=== PATIENT | female | born 1995 | race Caucasian/White ===

== ENCOUNTER 2019-04-11 12:41 | Emergency (ER) | payer MEDICAID, SELFPAY ==
[2019-04-11 12:44] VITALS: BP 127/66; PULSE 63; RESP 18; TEMP 36.3; O2SAT 100
--- NOTE | 2019-04-11 13:13 | ED.GENADUL_ITS ---
Discharge Plan Disposition Patient Disposition: HOME Discharge Details Chief Complaint: Allergic Clinical Impression: Allergic reaction to food Primary Care Provider: Amy Wilcox ED Provider: Stone Cason Home Meds and New Rx's Prescriptions: New prednisone 20 mg tablet 40 mg PO DAILY Qty: 8 RF: 0 No Action cetirizine [Zyrtec] 10 mg Tablet 10 mg PO DAILY RF: 0 Discharge Instructions Instructions: Food Allergy (ED), Anaphylaxis (ED) Additional Instructions: Please use Benadryl 50 mg every 8 hours for the next 2 days. Take prednisone as prescribed. Use your EpiPen as prescribed for anaphylaxis. Avoid foods that contain pineapple or any other known allergens. Please contact your primary care physician to arrange follow-up. Return to the ER for any worsening or new concerning symptoms. Discharge Data Discharge Date/Time-TO BE ENTERED AT DEPARTURE: 04/11/19 13:34 Medical Decision Making 23-year-old female with known pineapple allergy here after consuming Citizen Of [place] food that had some pineapple in it. She initially had some throat itching and s welling. This occurred around 1210, 1 hour ago. She took Benadryl 50 mg and symptoms have significantly improved and now resolved. She has no signs or symptoms of anaphylaxis now. Lungs are clear to auscultation. She saturating well no respiratory distress. No oropharyngeal edema. No nausea. No rash. Plan will be to start prednisone and continue prednisone burst with Benadryl every 8 hours. Patient does have access to her EpiPen and I encouraged her to use this for anaphylaxis. She understands she should avoid any foods containing pineapple. She was encouraged to follow-up with her primary care physician and to return immediately should she have any worsening or new concerning symptoms. HPI General Mode of arrival: ambulatory . Date/Time Provider Initiated Documentation: 04/11/19 12:55 . Limitations to Documentation: no limitations . Information obtained by: patient . HPI Narrative: 23-year-old female with known pineapple allergy here after consuming Citizen [place] food that had some pineapple in it. She initially had some throat itching and sensation of throat swelling. This occurred around 1210. She took benadryl and symptoms improved and have now resolved. No persistent swelling. No nausea/vomiting. No dyspnea. Related Data Home Medications Medication Instructions Recorded Confirmed cetirizine [Zyrtec] 10 mg PO DAILY 04/11/19 04/11/19 prednisone 40 mg PO DAILY #8 tab 04/11/19 Previous Rx's Medication Instructions Recorded prednisone 40 mg PO DAILY #8 tab 04/11/19 Allergies Allergy/AdvReac Type Severity Reaction Status Date / Time kiwi Allergy Swelling/Ed Unverified 04/11/19 12:49 vanita latex Allergy Hives Unverified 04/11/19 12:49 pineapple Allergy Swelling/Ed Unverified 04/11/19 12:49 vanita amoxicillin AdvReac Diarrhea Unverified 04/11/19 12:49 clavulanic acid AdvReac Diarrhea Unverified 04/11/19 12:49 [From Augmentin] General Stated Complaint: Allergic AURELIA: 3 Review of Systems ENT Ears, Nose, Mouth, and Throat: Reports as per HPI Cardiovascular Cardiovascular: Denies dyspnea Respiratory Respiratory: Denies dyspnea Gastrointestinal Gastrointestinal: Denies nausea and Denies vomiting Integumentary/Breasts Skin/Breast: Denies rash Endocrine Endocrine: Denies flushing PFSH Social History Smoking/Tobacco Use Status: Never Alcohol Intake: never Substance use type: does not use Exam Const General: cooperative and no acute distress HENMT Mouth: oral mucosae normal and moist mucous membranes Throat: posterior oropharynx normal and uvula midline Eyes Conjunctivae: normal conjunctivae Sclera: normal sclerae Neck Neck: trachea midline and supple Resp Auscultation: clear to auscultation bilaterally, no rales, no rhonchi and no wheezes Cardio Rate: regular rate and not tachycardic Rhythm: regular rhythm GI Palpation: soft, not firm, no guarding, no masses, not rigid and nontender Skin General skin exam: no rashes or lesions noted Neuro General: alert, awake and tone normal Extrem General: no edema Course Vital Signs Vital signs: Vital Signs Temperature 36.3 C L 04/11/19 12:44 Pulse 63 04/11/19 12:44 Respiratory Rate 18 04/11/19 12:44 Blood Pressure 127/66 04/11/19 12:44 Pulse Oximetry 100 04/11/19 12:44 Temperature 36.3 C L 04/11/19 12:44 Temperature Source Skin 04/11/19 12:44 Pulse 63 04/11/19 12:44 Respiratory Rate 18 04/11/19 12:44 Respiratory Effort Non-Labored 04/11/19 12:52 Respiratory Pattern Normal 04/11/19 12:52 Blood Pressure 127/66 04/11/19 12:44 Blood Pressure Position Sitting 04/11/19 12:44 Pulse Oximetry 100 04/11/19 12:44 Oxygen Delivery Method Room Air 04/11/19 12:44 Oxygen Flow Rate 0 04/11/19 12:44 Pain Level 0 04/11/19 12:44
[2019-04-11] MEDS: predniSONE 20 MG TAB 60 MG PO (13:25)
[2019-04-11 13:32] VITALS: BP 127/66; PULSE 63; RESP 18; TEMP 36.3; O2SAT 100
== END 2019-04-11 13:34 | disposition home or self-care (01) ==
LOC: ER 13:38
PROVIDERS: Emergency Provider Student in an Organized Health Care Education/Training Program
DX: T78.1XXA Other adverse food reactions, not elsewhere classified, initial encounter (principal); R09.89 Other specified symptoms and signs involving the circulatory and respiratory systems; Z91.018 Allergy to other foods
CPT/HCPCS: 99283; 99284; J7512